=== PATIENT | female | born 1950 | race Caucasian/White ===

== ENCOUNTER 2023-11-09 20:42 | Emergency (ER) | payer MEDICARE ==
[2023-11-09 23:02] LABS: BASO % 0.3 % (0.0-1.0); EOS % 0.3 % (0.0-3.0); HEMATOCRIT 38.6 % (36.0-47.0); LYMPH # 2.7 10^3/uL (1.5-5.0); LYMPH % 18.5 % (24.0-44.0); MEAN CORPUSCULAR HGB CONC 33.7 g/dl (32.0-36.5); MEAN CORPUSCULAR VOLUME 89.1 fl (80.0-96.0); MONO # 1.1 10^3/uL (0.0-0.8); MONO % 7.7 % (2.0-8.0); NEUTROPHILS # 10.4 10^3/uL (1.5-8.5); NEUTROPHILS % 72.7 % (36.0-66.0); PLATELET COUNT, AUTOMATED 259 10^3/uL (150-450); RED BLOOD COUNT 4.33 10^6/uL (4.00-5.40); WHITE BLOOD COUNT 14.3 10^3/uL (4.0-10.0)
[2023-11-09 23:29] LABS: BLOOD UREA NITROGEN 26 MG/DL (9-23); CARBON DIOXIDE LEVEL 22 MMOL/L (20-31); CHLORIDE LEVEL 108 MMOL/L (98-107); CK-MB VALUE MASS 1.3 NG/ML (<3.6); CREATININE FOR GFR 0.61 MG/DL (0.55-1.30); GLOMERULAR FILTRATION RATE > 60.0 (>39); GLUCOSE, FASTING 116 MG/DL (74-106); POTASSIUM SERUM 4.1 MMOL/L (3.5-5.1); SODIUM LEVEL 142 MMOL/L (136-145)
[2023-11-09 23:33] LABS: THYROID STIMULATING HORMONE 1.788 uIU/ML (0.55-4.78)
[2023-11-09 23:37] LABS: CPK CREATINE PHOSPHOKINASE 135 U/L (34-145); MB/CK RELATIVE INDEX 0.96 (< OR =4)
[2023-11-10] MEDS ORDERED: ISOVUE-370 76% 100ML VIAL As Ordered ONE (00:57)
[2023-11-10 01:10] LABS: CK-MB VALUE MASS 1.1 NG/ML (<3.6)
[2023-11-10 01:11] LABS: MB/CK RELATIVE INDEX 0.83 (< OR =4)
[2023-11-10] MEDS ORDERED: NS 1,000 ML IV ONE ×2 (03:40)
[2023-11-10 05:55] VITALS: BP 155/76; TEMP 98.1; O2SAT 99
== END 2023-11-10 05:56 | disposition home or self-care (01) ==
LOC: M ED 20:42 → EDBD 20:42 → M ED 11-10 05:56
DX: I95.1 Orthostatic hypotension (principal); I10 Essential (primary) hypertension; E78.5 Hyperlipidemia, unspecified; Z87.442 Personal history of urinary calculi
CPT/HCPCS: 71275; 80048; 82550; 82553; 83605; 84443; 84484; 85025; 87486; 87581; 87633; 87798; 93005; 93041; 93971; 94760; 99285; Q9967